=== PATIENT | male | born 1945 | race Caucasian/White ===

== ENCOUNTER 2024-03-25 09:38 | Inpatient (IN) | payer OTHER ==
[~2024-03-25] VITALS: Ht 177.8 cm; Wt 87.6 kg
[2024-03-25 10:40] LABS: Basophils # (auto) 0.1 10 ^3/uL (0-0.2); Basophils % (auto) 0.4 % (0.0-2.0); Eosinophils # (auto) 0.1 10 ^3/uL (0-0.8); Eosinophils % (auto) 0.5 % (0.0-7.0); Hematocrit 43.8 % (41.0-53.0); Hemoglobin 15.1 g/dL (13.5-17.5); Lymphocytes # (auto) 5.9 10 ^3/uL (0.4-5.4); Lymphocytes % (auto) 40.7 % (10.0-50.0); Mean Corpuscular Hemoglobin 33.3 pg (28.0-32.0); Mean Corpuscular Hgb Conc. 34.4 g/dL (32.0-36.0); Mean Corpuscular Volume 96.8 fL (80.0-100.0); Monocytes # (auto) 0.9 10 ^3/uL (0-1.3); Monocytes % (auto) 6.2 % (0.0-12.0); Neutrophils # (auto) 7.6 10 ^3/uL (1.6-8.6); Neutrophils % (auto) 52.2 % (37.0-80.0); Nucleated Red Blood Cells % 0.4 %; Platelet Count (auto) 158 10^3/uL (140-450); Red Blood Cells 4.53 10^6/uL (4.5-5.90); Red Cell Distribution Width 20.2 % (11.8-14.3); White Blood Cell 14.6 10^3/uL (4.4-10.8)
--- NOTE | 2024-03-25 10:49 | ED.PDOC ---
General HPI Comments 79-year-old male presents with a chief complaint of urinary retention and hematuria. Patient reports that he started taking chemotherapy pills for his Leukemia and noticed that he began to have hematuria with clots. However, now patient is reporting that he has been unable to void his bladder. Patient is also endorsing abdomen discomfort and has some distention. No other symptoms or modifying factors present at this time. Chief Complaint: Urinary Time Seen by MD: 10:29 Reviewed notes: Medications, Allergies Information Source: Patient, Spouse Mode of Arrival: Wheelchair Severity: Moderate Inability to void: Complete Timing: Days Duration: Since onset Has not urinated for: Hours Prehospital treatment: None Onset: Spontaneous Symptoms: Inability to void History of: None Location: Abdomen Past Medical History PAST MEDICAL HISTORY: Cancer Surgical History: Denies all surgeries Family History Family History: Reviewed,noncontributory to illness Social History Smoker: Non-Smoker Alcohol: Denies ETOH Use Drugs: Denies Drug Use Lives In: Home Constitutional: denies: chills, diaphoresis, fatigue, fever, malaise, sweats, weakness, others EENTM: denies: blurred vision, double vision, ear bleeding, ear discharge, ear drainage, ear pain, ear ringing, eye pain, eye redness, hearing loss, mouth pain, mouth swelling, nasal discharge, nose bleeding, nose congestion, nose pain, photophobia, tearing, throat pain, throat swelling, voice changes, others Respiratory: denies: cough, hemoptysis, orthopnea, SOB at rest, shortness of breath, SOB with excertion, stridor, wheezing, others Cardiovascular: denies: chest pain, dizzy spells, diaphoresis, Dyspnea on exertion, edema, irregular heart beat, left arm pain, lightheadedness, palpitations, PND, syncope, others Gastrointestinal: reports: abdominal pain; denies: abdomen distended, blood streaked bowels, constipated, diarrhea, dysphagia, difficulty swallowing, hematemesis, melena, nausea, poor appetite, poor fluid intake, rectal bleeding, rectal pain, vomiting, others Genitourinary: reports: hematuria, others (URINARY RETENTION); denies: burning, dysuria, flank pain, frequency, incontinence, penile discharge, penile sore, pain, testicle pain, testicle swelling, urgency Neurological: denies: dizziness, fainting, headache, left sided numbness, left sided weakness, numbness, paresthesia, pre-existing deficit, right sided numbness, right sided weakness, seizure, speech problems, tingling, tremors, weakness, others Musculoskeletal: denies: back pain, gout, joint pain, joint swelling, muscle pain, muscle stiffness, neck pain, others Integumetry: denies: bruises, change in color, change in hair/nails, dryness, laceration, lesions, lumps, rash, wounds, others Allergic/Immunocompromised: denies: Difficulty Healing, Frequent Infections, Hives, Itching, others Hematologic/Lymphatic: denies: anemia, blood clots, easy bleeding, easy bruising, swollen glands, others Endocrine: denies: excessive hunger, excessive sweating, excessive thirst, excessive urination, flushing, intolerance to cold, intolerance to heat, unexplained weight gain, unexplained weight loss, others Psychiatric: denies: anxiety, bipolar disorder, depression, hopeless, panic disorder, schizophrenia, sleepless, suicidal, others All Other Systems: Reviewed and Negative Physical Exam General Appearance: No Apparent Distress, Normal HEENT: Normal ENT Inspection, Pharynx Normal, TMs Normal Neck: Full Range of Motion, Non-Tender, Normal, Normal Inspection Respiratory: Chest Non-Tender, Lungs Clear, No Accessory Muscle Use, No Respiratory Distress, Normal Breath Sounds Cardiovascular: No Edema, No JVD, No Murmur, No Gallop, Normal Peripheral Pulses, Regular Rate/Rhythm Breast Exam: Deferred Gastrointestinal: No Organomegaly, Non Tender, No Pulsatile Mass, Normal Bowel Sounds, Soft Genitalia: Deferred Pelvic: Deferred Rectal: Deferred Extremities: No calf tenderness, Normal capillary refill, Normal inspection, Normal range of motion, Non-tender, No pedal edema Musculoskeletal : Apperance: Normal Neurologic: Alert, condenser tube tender II-XII nml as Tested, No Motor Deficits, Normal Affect, Normal Mood, No Sensory Deficits Cerebellar Function: Normal Reflexes: Normal Skin: Dry, Normal Color, Warm Lymphatic: No Adenopathy Was a procedure done? Was a procedure done?: No Differential Diagnosis Kidney stone (Female): N/A Kidney stone (Male): N/A Penile/Scrotal: N/A Urinary Problem (Male): Bladder Outlet, Bladder Obstruction, UTI X-Ray, Labs, Meds, VS Vital Signs Date Time Temp Pulse Resp B/P (MAP) Pulse Ox O2 Delivery O2 Flow Rate FiO2 03/25/24 15:00 92 137/65 (89) 95 03/25/24 13:45 85 17 Room Air* 0 21 03/25/24 12:49 92 12 146/84 (104) 96 03/25/24 09:58 97.5 107 16 135/80 (98) 95 Lab Test 03/25/24 13:21 03/25/24 10:19 Range/Units Urine Color Light-orange Yellow Urine Clarity Turbid H Clear Urine pH 5.5 5.0-9.0 Urine Specific [place] 1.039 H 1.001-1.035 Urine Protein 1+ H Negative Urine Ketones 2+ H Negative Urine Blood 3+ H Negative /uL Urine Nitrite Negative Negative Urine Bilirubin Negative Negative Urine Urobilinogen Normal Negative mg/dL Urine Leukocyte Esterase Negative Negative /uL Urine RBC 200 0 - 3 /hpf Urine WBC 7 0 - 3 /hpf Urine Squamous Epithelial Cells None seen <5 /hpf Urine Bacteria None seen None Seen /hpf Urine Glucose 4+ H Normal mg/dL White Blood Count 14.6 H 4.4-10.8 10^3/uL Red Blood Count 4.53 4.5-5.90 10^6/uL Hemoglobin 15.1 13.5-17.5 g/dL Hematocrit 43.8 41.0-53.0 % Mean Corpuscular Volume 96.8 80.0-100.0 fL Mean Corpuscular Hemoglobin 33.3 H 28.0-32.0 pg Mean Corpuscular Hemoglobin Concent 34.4 32.0-36.0 g/dL Red Cell Distribution Width 20.2 H 11.8-14.3 % Platelet Count 158 140-450 10^3/uL Mean Platelet Volume 9.4 6.9-10.8 fL Neutrophils (%) (Auto) 52.2 37.0-80.0 % Lymphocytes (%) (Auto) 40.7 10.0-50.0 % Monocytes (%) (Auto) 6.2 0.0-12.0 % Eosinophils (%) (Auto) 0.5 0.0-7.0 % Basophils (%) (Auto) 0.4 0.0-2.0 % Neutrophils # (Auto) 7.6 1.6-8.6 10 ^3/uL Lymphocytes # (Auto) 5.9 H 0.4-5.4 10 ^3/uL Monocytes # (Auto) 0.9 0-1.3 10 ^3/uL Eosinophils # (Auto) 0.1 0-0.8 10 ^3/uL Basophils # (Auto) 0.1 0-0.2 10 ^3/uL Nucleated Red Blood Cells 0.4 % Sodium Level 140 136-145 mmol/L Potassium Level 3.7 3.5-5.1 mmol/L Chloride Level 106 98-107 mmol/L Carbon Dioxide Level 25 20-31 mmol/L Anion Gap 9 5-15 Blood Urea Nitrogen 15 9-23 mg/dL Creatinine 0.67 L 0.700-1.30 mg/dL Glomerular Filtration Rate Calc 95 >90 mL/min BUN/Creatinine Ratio 22.4 H 10.0-20.0 Serum Glucose 132 H 74-106 mg/dL Calcium Level 10.4 8.7-10.4 mg/dL Time of 1ST Reevaluation: 11:03 Reevaluation 1ST: Unchanged Patient Education/Counseling: Diagnosis, Treatment, Prognosis Family Education/Counseling: Diagnosis, Treatment, Prognosis Departure 1 Departure Time of Disposition: 16:13 (Patient with acute urinary obstruction requiring CBI. We will admit patient for further workup and expert consultation) Impression: Primary Impression: Acute urinary retention Additional Impression: Abdominal pain Qualified Codes: R10.84 - Generalized abdominal pain Disposition: 09 ADMITTED INPATIENT Admit to: Med Surg Condition: Serious Critical Care Note Critical Care Time?: Yes Critical care comment: Acute abdominal pain Authorized and Performed by: Jes Butt MD Total critical care time: Approximately 44 minutes Due to a high probability of clinically significant, life threatening deterioration, the patient required my highest level of preparedness to intervene emergently and I personally spent this critical care time directly and personally managing the patient. This critical care time included obtaining a history; examining the patient; pulse oximetry; ordering and review of studies; arranging urgent treatment with development of a management plan; evaluation of patient's response to treatment; frequent reassessment; and, discussions with other providers. This critical care time was performed to assess and manage the high probability of imminent, life-threatening deterioration that could result in multi-organ failure. It was exclusive of separately billable procedures and treating other patients and teaching time. Please see my other sections and the rest of the note for further information on patient assessment and treatment. Stability Stability form required: No Heart Score Heart Score: Heart Score Response (Comments) Value History N/A 0 EKG N/A 0 Age N/A 0 Risk Factors N/A 0 Troponin N/A 0 Total 0 I personally scribed for JES BUTT MD ([email or web address]) on 03/25/24 at 10:49. Electronically submitted by Kevin Isidro ([email or web address]). JES BUTT MD Mar 25, 2024 10:49
[2024-03-25 10:50] LABS: Chloride 106 mmol/L (98-107); Potassium 3.7 mmol/L (3.5-5.1); Sodium 140 mmol/L (136-145)
[2024-03-25 10:51] LABS: Anion Gap 9 (5-15); Calcium 10.4 mg/dL (8.7-10.4); Carbon Dioxide 25 mmol/L (20-31)
[2024-03-25 10:56] LABS: BUN/Creatinine Ratio 22.4 (10.0-20.0); Blood Urea Nitrogen 15 mg/dL (9-23); Glucose 132 mg/dL (74-106)
[2024-03-25 13:45] VITALS: PULSE 85; RESP 17
[2024-03-25 13:45] LABS: Urine Bacteria None Seen /hpf (None Seen)
[2024-03-25 14:32] LABS: Urine Blood 3+ /uL (Negative); Urine Clarity Turbid (Clear); Urine Color Light-Orange (Yellow); Urine Protein, UAD 1+ (Negative); Urine Specific Gravity 1.039 (1.001-1.035); Urine Urobilinogen Normal (Negative); Urine WBC 7 /hpf (0 - 3); Urine pH 5.5 (5.0-9.0)
[2024-03-25] MEDS: ACETAMINOPHEN 325 MG TAB PO ONE (18:36)
[2024-03-25] MEDS ORDERED: NITROGLYCERIN 0.4 MG SL TAB SL PRN (18:45)
[2024-03-25] MEDS ORDERED: ACETAMINOPHEN 325 MG TAB PO PRN (18:45)
[2024-03-25] MEDS ORDERED: HYDROcodone-ACET 5/325MG TAB PO PRN (18:45)
[2024-03-25] MEDS ORDERED: DOCUSATE SOD 100 MG CAP PO PRN (18:45)
[2024-03-25] MEDS ORDERED: MORPHINE SULFATE INJ 2 MG/ml SYRG IV PRN (18:45)
[2024-03-25] MEDS ORDERED: ONDANSETRON HCL 4 MG/2 ML VIAL IV PRN (18:45)
--- NOTE | 2024-03-25 18:56 | DVHHP2 ---
History of Present Illness Reason for Visit: hematuria History of Present Illness Felix Alvarez is a 79-year-old male with past medical history of hypertension, diabetes, and recent diagnosis of leukemia, who comes in with complaints of dysuria, hematuria, and urinary retention. Patient states he was diagnosed with leukemia about 4-5 months ago. He started a chemotherapy pill, and then began having hematuria. He stopped the pill, thought his urine was clearing up, when he became unable to urinate, started having pelvic pain and distention. He had previously spoken with his oncologist to let her know his symptoms, and that he had stopped his medication. He does have an appointment later this month with the oncologist. Cardiovascular: HTN Heme/Onc: Cancer (Leukemia) Endocrine: Diabetes Past Surgical History: None Family History: None Smoke: Quit (5 years ago) ALCOHOL: none Drugs: None Lives: Alone Domestic Violence: Neg Review of Systems Constitutional: No: Fever, Chills, Sweats, Weakness, Malaise, Other Eyes: No: Pain, Vision change, Conjunctivae inflammation, Eyelid inflammation, Other, Redness ENT: No: Ear pain, Ear discharge, Nose pain, Nose discharge, Nose congestion, Mouth pain, Mouth swelling, Throat pain, Throat swelling, Other Respiratory: No: Cough, Dry, Shortness of breath, SOB with excertion, Wheezing, Hemoptysis, Pleuritic Pain, Sputum, Wheezing, Other Cardiovascular: No: Chest Pain, Palpitations, Orthopnea, Paroxysmal Noc. Dyspnea, Edema, Lt Headedness, Other Gastrointestinal: No: Nausea, Vomiting, Abdominal Pain, Diarrhea, Constipation, Melena, Hematochezia, Other Genitourinary: Dysuria, Frequency; No Incontinence; Hematuria; No Retention, No Other Musculoskeletal: No: other, neck pain, shoulder pain, arm pain, back pain, hand pain, leg pain, foot pain Skin: No: Rash, Lesions, Jaundice, Bruising, Other Neurological: No: Weakness, Numbness, Incoordination, Change in speech, Confusion, Seizures, Other Allergies: Coded Allergies: NO KNOWN ALLERGIES (Unverified , 03/25/24) Medications Current Medications Medications Dose Ordered Sig/Jaqueline Route Start Time Stop Time Status Last Admin Dose Admin Sodium Chloride 10 ml Q8HR IV 03/25/24 22:00 Acetaminophen/ Hydrocodone Bitart 1 tab Q4HP PRN PO 03/25/24 18:45 Ondansetron HCl 4 mg Q4HP PRN IV 03/25/24 18:45 Docusate Sodium 100 mg BIDPRN PRN PO 03/25/24 18:45 Acetaminophen 650 mg Q6HP PRN PO 03/25/24 18:45 Nitroglycerin 0.4 mg Q5MINP PRN SL 03/25/24 18:45 Morphine Sulfate 2 mg Q30M PRN IV 03/25/24 18:45 Exam Vital Signs Vital Signs Date Time Temp Pulse Resp B/P (MAP) Pulse Ox O2 Delivery O2 Flow Rate FiO2 03/25/24 18:00 93 17 118/78 (91) 94 03/25/24 13:45 Room Air* 0 21 03/25/24 09:58 97.5 General Appearance: Alert, Oriented X3, Cooperative, mild distress HEENT: Atraumatic, PERRLA Respiratory: Clear to auscultation, Normal air movement Cardiovascular: Regular rate, Normal S1, Normal S2 Abdominal: Normal bowel sounds, Soft, No tenderness Extremities: No clubbing, No cyanosis, No edema, Normal pulses Skin: No rashes, No breakdown, No significant lesion Neuro: Normal gait, Normal speech, Strength at 5/5 X4 ext Psych/Mental Status: Mental status NL, Mood NL Labs/Xrays Labs Test 03/25/24 13:21 03/25/24 10:19 Range/Units Urine Color Light-orange Yellow Urine Clarity Turbid H Clear Urine pH 5.5 5.0-9.0 Urine Specific [place] 1.039 H 1.001-1.035 Urine Protein 1+ H Negative Urine Ketones 2+ H Negative Urine Blood 3+ H Negative /uL Urine Nitrite Negative Negative Urine Bilirubin Negative Negative Urine Urobilinogen Normal Negative mg/dL Urine Leukocyte Esterase Negative Negative /uL Urine RBC 200 0 - 3 /hpf Urine WBC 7 0 - 3 /hpf Urine Squamous Epithelial Cells None seen <5 /hpf Urine Bacteria None seen None Seen /hpf Urine Glucose 4+ H Normal mg/dL White Blood Count 14.6 H 4.4-10.8 10^3/uL Red Blood Count 4.53 4.5-5.90 10^6/uL Hemoglobin 15.1 13.5-17.5 g/dL Hematocrit 43.8 41.0-53.0 % Mean Corpuscular Volume 96.8 80.0-100.0 fL Mean Corpuscular Hemoglobin 33.3 H 28.0-32.0 pg Mean Corpuscular Hemoglobin Concent 34.4 32.0-36.0 g/dL Red Cell Distribution Width 20.2 H 11.8-14.3 % Platelet Count 158 140-450 10^3/uL Mean Platelet Volume 9.4 6.9-10.8 fL Neutrophils (%) (Auto) 52.2 37.0-80.0 % Lymphocytes (%) (Auto) 40.7 10.0-50.0 % Monocytes (%) (Auto) 6.2 0.0-12.0 % Eosinophils (%) (Auto) 0.5 0.0-7.0 % Basophils (%) (Auto) 0.4 0.0-2.0 % Neutrophils # (Auto) 7.6 1.6-8.6 10 ^3/uL Lymphocytes # (Auto) 5.9 H 0.4-5.4 10 ^3/uL Monocytes # (Auto) 0.9 0-1.3 10 ^3/uL Eosinophils # (Auto) 0.1 0-0.8 10 ^3/uL Basophils # (Auto) 0.1 0-0.2 10 ^3/uL Nucleated Red Blood Cells 0.4 % Sodium Level 140 136-145 mmol/L Potassium Level 3.7 3.5-5.1 mmol/L Chloride Level 106 98-107 mmol/L Carbon Dioxide Level 25 20-31 mmol/L Anion Gap 9 5-15 Blood Urea Nitrogen 15 9-23 mg/dL Creatinine 0.67 L 0.700-1.30 mg/dL Glomerular Filtration Rate Calc 95 >90 mL/min BUN/Creatinine Ratio 22.4 H 10.0-20.0 Serum Glucose 132 H 74-106 mg/dL Calcium Level 10.4 8.7-10.4 mg/dL Assessment/Plan Assessment/Plan Assessment: Acute urinary retention, Hematuria, Dysuria, Hypertension, Leukemia, Diabetes, Arthritis, Plan: Admit to Med-Surg, Urology consult, CBI, IV antibiotics, Home medications reconciled, Accu checks Q AC&HS with sliding scale, Plan discussed with: Patient My Orders Orders - LISETTE GUTHRIE Procedure Category Date Status Time Admit ADMIT 03/25/24 Transmitted 18:32 Code Status CODE 03/25/24 Transmitted 18:32 2 Gm Sodium Diet DIET 03/26/24 Transmitted Breakfast Sodium Chloride Lock PHA 03/25/24 In Process (Saline Lock Ns) 22:00 Hydrocodone-Acet PHA 03/25/24 In Process 5/325mg Tab ([place] 18:45 Ondansetron Hcl PHA 03/25/24 In Process (Zofran) 18:45 Docusate Sodium PHA 03/25/24 In Process Capsule (Colace 18:45 Complete Blood Count LAB 03/26/24 Verified 04:00 Comprehensive LAB 03/26/24 Verified Metabolic Panel 04:00 Condition: Serious LALO 03/25/24 In Process 18:32 Acetaminophen Tablet PHA 03/25/24 In Process (Tylenol Tablet) 18:45 Nitroglycerin PHA 03/25/24 In Process Sublingual (Ntrostat 18:45 Morphine Sulfate PHA 03/25/24 In Process Injection 18:45 Stat Ekg For Chest LALO 03/25/24 In Process Pain 18:32 Notify Md Of Changes LALO 03/25/24 In Process From Base 18:32 Software Team Leader For LALO 03/25/24 In Process 24 Hours 18:32 Emergency Dysrhythmia LALO 03/25/24 In Process Protocol 18:32 Rhythm Strips Once LALO 03/25/24 In Process Every Shift 18:32 Oxygen By Nasal RT 03/25/24 Transmitted Cannula 18:32 * Urology Consult CONS 03/25/24 Transmitted 18:32 Date of Service: Mar 25, 2024 Billing Provider: LISETTE GUTHRIE Common Visit Codes: [id number] INP/OBS CARE (MOD) LISETTE GUTHRIE Mar 25, 2024 18:56
[2024-03-25] MEDS ORDERED: DEXTROSE (50%) 50ML SYRG IV PRN (19:00)
[2024-03-25] MEDS: cefTRIAXone 1GM/50ML D5W 50 ML IV ONE (19:07)
[2024-03-25 19:30] VITALS: PULSE 91; RESP 20; O2SAT 93
[2024-03-25] MEDS ORDERED: TAMS0.4C39 PO (19:50)
[2024-03-25] MEDS ORDERED: ALBUTEROL SULF HFA 90MCG INH 200DOSE IN PRN (21:15)
[2024-03-25] MEDS ORDERED: METO-158 PO (21:19)
[2024-03-25] MEDS ORDERED: IBUP-1455 PO (21:19)
[2024-03-25] MEDS ORDERED: LORA-622 PO (21:19)
[2024-03-25] MEDS ORDERED: METF-370 PO (21:19)
[2024-03-25] MEDS ORDERED: HYDR25TA5 PO (21:19)
[2024-03-25] MEDS ORDERED: GABA-1250 PO (21:19)
[2024-03-25] MEDS ORDERED: ATOR20TA50 PO (21:19)
[2024-03-25] MEDS ORDERED: EMPA1TAB3 PO (21:22)
[2024-03-25] MEDS ORDERED: FLUT1AER6 IN (21:22)
[2024-03-25] MEDS ORDERED: BENA40TA71 PO (21:22)
[2024-03-25] MEDS ORDERED: ALBU108A5 IN (21:22)
[2024-03-25 21:33] VITALS: BP 113/63; PULSE 91; RESP 20; O2SAT 93
[2024-03-25] MEDS ORDERED: FLUTICASONE SALMETEROL IN SCH (22:00)
[2024-03-25] MEDS: InsuLIN REG 1unit/0.01ml Soln (100units/ml) SC SCH (22:00)
[2024-03-25 22:19] VITALS: BP 124/71; PULSE 68; PULSE 87; RESP 18; RESP 19; TEMP 99.1; O2SAT 99
[2024-03-25] MEDS: ATORVASTATIN 20 MG TAB PO SCH (22:49)
[2024-03-25] MEDS: GABAPENTIN 300 MG CAP PO SCH (22:49)
[2024-03-25] MEDS: SODIUM CHLOR 0.9% PF (SALINE LOCK) 10ML VIAL/SYR IV SCH (22:50)
[2024-03-25] MEDS: ACCU-CHEK COMFORT CURVE STRIP VI SCH (22:50)
[2024-03-25] MEDS: METOPROLOL TARTRATE 50 MG TAB PO SCH (22:50)
[2024-03-26] VITALS (14 sets, daily range): BP systolic 104–119; BP diastolic 54–67; PULSE 69–100; RESP 16–20; TEMP 97.8–98.7; O2SAT 90–100
[2024-03-26 05:52] LABS: Basophils # (auto) 0 10 ^3/uL (0-0.2); Basophils % (auto) 0.4 % (0.0-2.0); Eosinophils # (auto) 0.1 10 ^3/uL (0-0.8); Eosinophils % (auto) 0.8 % (0.0-7.0); Hematocrit 38.9 % (41.0-53.0); Hemoglobin 13.5 g/dL (13.5-17.5); Lymphocytes # (auto) 4.9 10 ^3/uL (0.4-5.4); Lymphocytes % (auto) 37.7 % (10.0-50.0); Mean Corpuscular Hemoglobin 33.5 pg (28.0-32.0); Mean Corpuscular Hgb Conc. 34.7 g/dL (32.0-36.0); Mean Corpuscular Volume 96.5 fL (80.0-100.0); Monocytes # (auto) 1.5 10 ^3/uL (0-1.3); Monocytes % (auto) 11.2 % (0.0-12.0); Neutrophils # (auto) 6.5 10 ^3/uL (1.6-8.6); Neutrophils % (auto) 49.9 % (37.0-80.0); Nucleated Red Blood Cells % 0.1 %; Platelet Count (auto) 130 10^3/uL (140-450); Red Blood Cells 4.03 10^6/uL (4.5-5.90); Red Cell Distribution Width 19.8 % (11.8-14.3); White Blood Cell 13.1 10^3/uL (4.4-10.8)
[2024-03-26 05:59] LABS: Alanine Aminotransferase 17 U/L (7-40); Alkaline Phosphatase 134 U/L (46-116); Anion Gap 9 (5-15); Blood Urea Nitrogen 13 mg/dL (9-23); Calcium 9.6 mg/dL (8.7-10.4); Carbon Dioxide 25 mmol/L (20-31); Chloride 108 mmol/L (98-107); Glucose 114 mg/dL (74-106); Potassium 3.5 mmol/L (3.5-5.1); Sodium 142 mmol/L (136-145)
[2024-03-26 06:00] LABS: Albumin 3.7 g/dL (3.2-4.8); Aspartate Aminotransferase 18 U/L (13-40); Bilirubin, Total 2.9 mg/dL (0.2-1.0); Total Protein 5.9 g/dL (5.7-8.2)
[2024-03-26] MEDS: InsuLIN REG 1unit/0.01ml Soln (100units/ml) SC SCH (06:08)
[2024-03-26] MEDS: BUDESONIDE (INHALATION) 0.5 MG/2 ML NEB NEB SCH (06:50)
[2024-03-26] MEDS: cefTRIAXone 1GM/50ML D5W 50 ML IV SCH (09:52)
[2024-03-26] MEDS: hydroCHLOROthiazide 25 MG TAB PO SCH (09:55)
[2024-03-26] MEDS: EMPAGLIFLOZIN 10 MG TAB PO SCH (09:55)
[2024-03-26] MEDS: TAMSULOSIN HYDROCHLORIDE 0.4 MG CAP PO SCH (09:57)
[2024-03-26] MEDS: BENAZEPRIL HCL 10 MG TAB PO SCH (10:00)
[2024-03-26] MEDS: ALBUTEROL SULF 2.5 MG/0.5ML(0.5%) NEB SOLN ONE (12:02)
--- NOTE | 2024-03-26 12:40 | DVH ---
RENAL ULTRASOUND CLINICAL HISTORY: Hematuria TECHNIQUE: Multiple ultrasound images of the kidneys and bladder were obtained. COMPARISON: None FINDINGS: The right kidney measures 11.7 cm in length. The left kidney measures 10.6 cm. The kidneys demonstrat e appropriate echotexture without evidence of a discrete renal lesion, nephrolithiasis or hydronephro sis. Incidentally noted is a 3.0 cm gallstone within the gallbladder. There is a Ceils catheter within the bladder which is collapsed. IMPRESSION: 1. Unremarkable sonographic appearance of the kidneys. 2. Cholelithiasis. HS:Y
[2024-03-26] MEDS: ALBUTEROL MEDNEB 2.5 mg/3ml NEB NEB SCH ×2 (13:16)
--- NOTE | 2024-03-26 14:30 | DVHPN2 ---
Subjective 79-year-old male with a history of leukemia who has been on chemo says he started having difficulty urination and hematuria since yesterday He has a history of hypertension diabetes and leukemia He is on CBI now Changes from previous H/P or p: Changes Eyes: No Pain, No Vision change, No Conjunctivae inflammation, No Eyelid inflammation, No Other, No Redness ENT: No Ear pain, No Ear discharge, No Nose pain, No Nose discharge, No Nose congestion, No Mouth pain, No Mouth swelling, No Throat pain, No Throat swelling, No Other Cardiovascular: No Chest Pain, No Palpitations, No Orthopnea, No Paroxysmal Noc. Dyspnea, No Edema, No Lt Headedness, No Other Respiratory: No Cough, No Dry, No Shortness of breath, No SOB with excertion, No Wheezing, No Hemoptysis, No Pleuritic Pain, No Sputum, No Other Gastrointestinal: No Nausea, No Vomiting, No Abdominal Pain, No Diarrhea, No Constipation, No Melena, No Hematochezia, No Other Genitourinary: Dysuria, Frequency; No Incontinence; Hematuria; No Retention, No Other Musculoskeletal: No other, No neck pain, No shoulder pain, No arm pain, No back pain, No hand pain, No leg pain, No foot pain Skin: No Rash, No Lesions, No Jaundice, No Bruising, No Other Objective Vitals Vital Signs Date Time Temp Pulse Resp B/P (MAP) Pulse Ox O2 Delivery O2 Flow Rate FiO2 03/26/24 13:18 100 18 99 03/26/24 13:12 Nasal Cannula 2.0 03/26/24 13:12 28 03/26/24 12:47 97.8 114/60 (78) 97.8 Intake/Output Intake and Output 03/26/24 07:00 Intake Total 175 ml Output Total 41597 ml Balance -54785 ml Intake Oral 125 ml IV Total 50 ml Output Urine Total 47001 ml General Appearance: Alert, Oriented X3, Cooperative, No acute distress Lungs: Clear to auscultation, Normal air movement Cardiovascular: Regular rate, Normal S1 Abdomen: Normal bowel sounds, Soft, No tenderness Extremities: No edema Medications Current Medications Medications Dose Ordered Sig/Jaqueline Route Start Time Stop Time Status Last Admin Dose Admin Sodium Chloride 10 ml Q8HR IV 03/25/24 22:00 03/26/24 14:21 10 ML Acetaminophen/ Hydrocodone Bitart 1 tab Q4HP PRN PO 03/25/24 18:45 Ondansetron HCl 4 mg Q4HP PRN IV 03/25/24 18:45 Docusate Sodium 100 mg BIDPRN PRN PO 03/25/24 18:45 Acetaminophen 650 mg Q6HP PRN PO 03/25/24 18:45 Nitroglycerin 0.4 mg Q5MINP PRN SL 03/25/24 18:45 Morphine Sulfate 2 mg Q30M PRN IV 03/25/24 18:45 Diagnostic Test (Pha) 1 strip ACHS 03/25/24 22:00 03/26/24 11:50 1 STRIP Insulin Human Regular HS SC 03/25/24 22:00 Insulin Human Regular AC SC 03/26/24 07:00 03/26/24 11:54 3 UNITS Dextrose 50 ml UD PRN IV 03/25/24 19:00 Ceftriaxone Sodium 50 ml @ 100 mls/hr DAILY@09 IV 03/26/24 09:00 03/26/24 09:52 100 MLS/HR Tamsulosin HCl 0.4 mg DAILY PO 03/26/24 10:00 03/26/24 09:57 0.4 MG Albuterol 108 mcg Q6HP PRN IN 03/25/24 21:15 Hold Atorvastatin Calcium 20 mg HS PO 03/25/24 22:00 03/25/24 22:49 20 MG Gabapentin 300 mg TID PO 03/25/24 22:00 03/26/24 14:21 300 MG Hydrochlorothiazide 25 mg DAILY PO 03/26/24 10:00 03/26/24 09:55 25 MG Metoprolol Tartrate 50 mg BID PO 03/25/24 22:00 03/25/24 22:50 50 MG Benazepril HCl 40 mg DAILY PO 03/26/24 10:00 Empaglifozin 25 mg DAILY PO 03/26/24 10:00 03/26/24 09:55 25 MG Budesonide 0.5 mg BID NEB 03/26/24 10:00 03/26/24 06:50 0.5 MG Albuterol 2.5 mg Q6HR NEB 03/26/24 18:00 Laboratory Results Laboratory Tests 03/26/24 05:05 Chemistry Test 03/26/24 05:05 Albumin 3.7 g/dL (3.2-4.8) Calcium Level 9.6 mg/dL (8.7-10.4) Total Protein 5.9 g/dL (5.7-8.2) LFT Test 03/26/24 05:05 Alanine Aminotransferase (ALT) 17 U/L (7-40) Alkaline Phosphatase 134 U/L (46-116) H Aspartate Amino Transferase (AST) 18 U/L (13-40) Total Bilirubin 2.9 mg/dL (0.2-1.0) H Urinalysis Test 03/25/24 13:21 Urine Color Light-orange (Yellow) Urine Clarity Turbid (Clear) H Urine pH 5.5 (5.0-9.0) Urine Specific [place] 1.039 (1.001-1.035) Urine Protein 1+ (Negative) H Urine Ketones 2+ (Negative) H Urine Blood 3+ /uL (Negative) H Urine Nitrite Negative (Negative) Urine Bilirubin Negative (Negative) Urine Urobilinogen Normal mg/dL (Negative) Urine Leukocyte Esterase Negative /uL (Negative) Urine RBC 200 /hpf (0 - 3) Urine WBC 7 /hpf (0 - 3) Urine Squamous Epithelial Cells None seen /hpf (<5) Urine Bacteria None seen /hpf (None Seen) Urine Glucose 4+ mg/dL (Normal) H Assessment/Plan Assessment/Plan Hematuria Acute urinary retention Hypertension Diabetes Leukemia Plan Celis catheter was inserted Continuous bladder irrigation is in progress Urology consult IV Rocephin Monitor closely Full code Plan discussed with: Patient Date of Service: Mar 26, 2024 Billing Provider: TERRI JORDAN MD Common Visit Codes: NOT BILLABLE TERRI JORDAN MD Mar 26, 2024 14:30
--- NOTE | 2024-03-26 14:34 | DVHINCON2 ---
Date of service: Mar 26, 2024 Referring Physician hospitalist Reason for Consultation hematuria History of Present Illness History Source: Patient, Old Records Exam Limitations: No limitations Home Meds Active Scripts Atorvastatin Calcium (ATORVASTATIN CALCIUM) 20 Mg Tab, 1 TAB PO HS, #30 TAB 5 Refills Prov:LISETTE GUTHRIE ACCOUNT DEVELOPMENT ASSOCIATE 03/25/24 Reported Medications Fluticasone-Salmeterol (Wixela Inhub 250-50 Mcg/Dose) 1 Aer Aer, 1 AER IN BID, AER 03/25/24 Albuterol Sulfate (Albuterol Sulfate Hfa) 108 Mcg/Act Aer, 108 MCG IN Q6HP PRN, AER 03/25/24 Benazepril Hcl (Benazepril Hcl) 40 Mg Tab, 40 MG PO DAILY, TAB 03/25/24 Empagliflozin (Jardiance) 25 Mg Tab, 25 MG PO DAILY, TAB 03/25/24 Gabapentin (Gabapentin) 300 Mg Cap, 1 CAP PO TID, #90 CAP 5 Refills 03/25/24 Metoprolol Tartrate (Metoprolol Tartrate) 50 Mg Tab, 50 MG PO BID, TAB 03/25/24 Hctz (Hydrochlorothiazide) 25 Mg Tab, 25 MG PO DAILY, TAB 03/25/24 Loratadine (Claritin) 10 Mg Tab, 1 TAB PO PRN PRN, #30 TAB 5 Refills 03/25/24 Metformin Hydrochloride (Metformin Hcl) 500 Mg Tab, 2 TAB PO BID, #60 TAB 3 Ref ills 03/25/24 Ibuprofen Micronized (Ibuprofen) 800 Mg Tab, 800 MG PO TID, TAB 03/25/24 Tamsulosin Hcl (Tamsulosin Hcl) 0.4 Mg Cap, 1 CAP PO DAILY 03/25/24 Past Medical History Patient Family History: FH: pancreatic cancer G8 MOTHER H&P Exam Vital Signs Vital Signs Date Time Temp Pulse Resp B/P (MAP) Pulse Ox O2 Delivery O2 Flow Rate FiO2 03/26/24 13:18 100 18 99 03/26/24 13:12 Nasal Cannula 2.0 03/26/24 13:12 28 03/26/24 12:47 97.8 114/60 (78) 97.8 Labs/Xrays [address] [address] Ph: [phone] DIAGNOSTIC IMAGING Diagnostic Imaging Report : [id number] Signed PATIENT: MAX CAMPUZANOACCT: [id number] UNIT: [id number] : 1945 LOC: [facility] AGE / SEX: 79 / M ADM STATUS: ADM IN SERVICE 1114 ORDERING PHYSICIAN: JEAN BORJA NP PROCEDURE(s): KIDUS - KIDNEY REASON: Hematuria ORDER NUMBER(s): [id number], ACCESSION NUMBER(s): [id number] RENAL ULTRASOUND CLINICAL HISTORY: Hematuria TECHNIQUE: Multiple ultrasound images of the kidneys and bladder were obtained. COMPARISON: None FINDINGS: The right kidney measures 11.7 cm in length. The left kidney measures 10.6 cm. The kidneys demonstrate appropriate echotexture without evidence of a discrete renal lesion, nephrolithiasis or hydronephrosis. Incidentally noted is a 3.0 cm gallstone within the gallbladder. There is a Mejia catheter within the bladder which is collapsed. IMPRESSION: 1. Unremarkable sonographic appearance of the kidneys. 2. Cholelithiasis. HS:Y ATED BY: JAVED NIX MD DICTATED DATE/TIME: 03/26/24 1237 SIGNED BY: JAVED NIX MD SIGNED DATE/TIME: 03/26/24 1237 CC: Labs Test 03/26/24 11:53 03/26/24 05:05 03/25/24 13:21 Range/Units POC Glucose 168 H 70-106 mg/dl White Blood Count 13.1 H 4.4-10.8 10^3/uL Red Blood Count 4.03 L 4.5-5.90 10^6/uL Hemoglobin 13.5 13.5-17.5 g/dL Hematocrit 38.9 #L 41.0-53.0 % Mean Corpuscular Volume 96.5 80.0-100.0 fL Mean Corpuscular Hemoglobin 33.5 H 28.0-32.0 pg Mean Corpuscular Hemoglobin Concent 34.7 32.0-36.0 g/dL Red Cell Distribution Width 19.8 H 11.8-14.3 % Platelet Count 130 L 140-450 10^3/uL Mean Platelet Volume 10.0 6.9-10.8 fL Neutrophils (%) (Auto) 49.9 37.0-80.0 % Lymphocytes (%) (Auto) 37.7 10.0-50.0 % Monocytes (%) (Auto) 11.2 0.0-12.0 % Eosinophils (%) (Auto) 0.8 0.0-7.0 % Basophils (%) (Auto) 0.4 0.0-2.0 % Neutrophils # (Auto) 6.5 1.6-8.6 10 ^3/uL Lymphocytes # (Auto) 4.9 0.4-5.4 10 ^3/uL Monocytes # (Auto) 1.5 H 0-1.3 10 ^3/uL Eosinophils # (Auto) 0.1 0-0.8 10 ^3/uL Basophils # (Auto) 0 0-0.2 10 ^3/uL Nucleated Red Blood Cells 0.1 % Sodium Level 142 136-145 mmol/L Potassium Level 3.5 3.5-5.1 mmol/L Chloride Level 108 H 98-107 mmol/L Carbon Dioxide Level 25 20-31 mmol/L Anion Gap 9 5-15 Blood Urea Nitrogen 13 9-23 mg/dL Creatinine 0.62 L 0.700-1.30 mg/dL Glomerular Filtration Rate Calc 97 >90 mL/min BUN/Creatinine Ratio 21.0 H 10.0-20.0 Serum Glucose 114 H 74-106 mg/dL Calcium Level 9.6 8.7-10.4 mg/dL Total Bilirubin 2.9 H 0.2-1.0 mg/dL Aspartate Amino Transferase (AST) 18 13-40 U/L Alanine Aminotransferase (ALT) 17 7-40 U/L Alkaline Phosphatase 134 H 46-116 U/L Total Protein 5.9 5.7-8.2 g/dL Albumin 3.7 3.2-4.8 g/dL Urine Color Light-orange Yellow Urine Clarity Turbid H Clear Urine pH 5.5 5.0-9.0 Urine Specific [place] 1.039 H 1.001-1.035 Urine Protein 1+ H Negative Urine Ketones 2+ H Negative Urine Blood 3+ H Negative /uL Urine Nitrite Negative Negative Urine Bilirubin Negative Negative Urine Urobilinogen Normal Negative mg/dL Urine Leukocyte Esterase Negative Negative /uL Urine RBC 200 0 - 3 /hpf Urine WBC 7 0 - 3 /hpf Urine Squamous Epithelial Cells None seen <5 /hpf Urine Bacteria None seen None Seen /hpf Urine Glucose 4+ H Normal mg/dL Assessment/Plan Problem List: (1) Abdominal pain (2) Acute urinary retention Plan d/c home with mejia catheter Plan discussed with: Patient, Other JEAN BORJA NP Mar 26, 2024 14:34
[2024-03-26] MEDS: ALBUTEROL SULF 2.5 MG/0.5ML(0.5%) NEB SOLN NEB SCH (18:11)
[2024-03-27] VITALS (11 sets, daily range): BP systolic 101–127; BP diastolic 66–71; PULSE 69–115; RESP 16–20; TEMP 36.8; O2SAT 91–99
[2024-03-27 06:03] LABS: Chloride 107 mmol/L (98-107); Potassium 3.4 mmol/L (3.5-5.1); Sodium 137 mmol/L (136-145)
[2024-03-27 06:04] LABS: Anion Gap 2 (5-15); Carbon Dioxide 28 mmol/L (20-31)
[2024-03-27 06:05] LABS: Basophils # (auto) 0.1 10 ^3/uL (0-0.2); Basophils % (auto) 0.5 % (0.0-2.0); Calcium 9.7 mg/dL (8.7-10.4); Eosinophils # (auto) 0.1 10 ^3/uL (0-0.8); Eosinophils % (auto) 0.8 % (0.0-7.0); Hematocrit 38.6 % (41.0-53.0); Hemoglobin 13.5 g/dL (13.5-17.5); Lymphocytes # (auto) 4.8 10 ^3/uL (0.4-5.4); Lymphocytes % (auto) 39.9 % (10.0-50.0); Mean Corpuscular Hemoglobin 33.8 pg (28.0-32.0); Mean Corpuscular Volume 96.6 fL (80.0-100.0); Monocytes # (auto) 1.5 10 ^3/uL (0-1.3); Monocytes % (auto) 12.9 % (0.0-12.0); Neutrophils # (auto) 5.5 10 ^3/uL (1.6-8.6); Neutrophils % (auto) 45.9 % (37.0-80.0); Nucleated Red Blood Cells % 0.1 %; Platelet Count (auto) 124 10^3/uL (140-450); Red Blood Cells 3.99 10^6/uL (4.5-5.90); Red Cell Distribution Width 19.4 % (11.8-14.3); White Blood Cell 11.9 10^3/uL (4.4-10.8)
[2024-03-27 06:10] LABS: BUN/Creatinine Ratio 19.3 (10.0-20.0); Blood Urea Nitrogen 11 mg/dL (9-23); Glucose 110 mg/dL (74-106)
--- NOTE | 2024-03-27 11:10 | DVHDS2 ---
Discharge Summary Date of Admission Mar 25, 2024 at 18:32 Date of Discharge: Mar 27, 2024 Labs/Diagnostic Data: Laboratory Results Test 03/27/24 05:59 03/27/24 05:18 03/26/24 05:05 03/25/24 13:21 POC Glucose 121 mg/dl (70-106) White Blood Count 11.9 10^3/uL (4.4-10.8) Red Blood Count 3.99 10^6/uL (4.5-5.90) Hemoglobin 13.5 g/dL (13.5-17.5) Hematocrit 38.6 % (41.0-53.0) Mean Corpuscular Volume 96.6 fL (80.0-100.0) Mean Corpuscular Hemoglobin 33.8 pg (28.0-32.0) Mean Corpuscular Hemoglobin Concent 35.0 g/dL (32.0-36.0) Red Cell Distribution Width 19.4 % (11.8-14.3) Platelet Count 124 10^3/uL (140-450) Mean Platelet Volume 9.5 fL (6.9-10.8) Neutrophils (%) (Auto) 45.9 % (37.0-80.0) Lymphocytes (%) (Auto) 39.9 % (10.0-50.0) Monocytes (%) (Auto) 12.9 % (0.0-12.0) Eosinophils (%) (Auto) 0.8 % (0.0-7.0) Basophils (%) (Auto) 0.5 % (0.0-2.0) Neutrophils # (Auto) 5.5 10 ^3/uL (1.6-8.6) Lymphocytes # (Auto) 4.8 10 ^3/uL (0.4-5.4) Monocytes # (Auto) 1.5 10 ^3/uL (0-1.3) Eosinophils # (Auto) 0.1 10 ^3/uL (0-0.8) Basophils # (Auto) 0.1 10 ^3/uL (0-0.2) Nucleated Red Blood Cells 0.1 % Sodium Level 137 mmol/L (136-145) Potassium Level 3.4 mmol/L (3.5-5.1) Chloride Level 107 mmol/L (98-107) Carbon Dioxide Level 28 mmol/L (20-31) Anion Gap 2 (5-15) Blood Urea Nitrogen 11 mg/dL (9-23) Creatinine 0.57 mg/dL (0.700-1.30) Glomerular Filtration Rate Calc 100 mL/min (>90) BUN/Creatinine Ratio 19.3 (10.0-20.0) Serum Glucose 110 mg/dL (74-106) Calcium Level 9.7 mg/dL (8.7-10.4) Total Bilirubin 2.9 mg/dL (0.2-1.0) Aspartate Amino Transferase (AST) 18 U/L (13-40) Alanine Aminotransferase (ALT) 17 U/L (7-40) Alkaline Phosphatase 134 U/L (46-116) Total Protein 5.9 g/dL (5.7-8.2) Albumin 3.7 g/dL (3.2-4.8) Urine Color Light-orange (Yellow) Urine Clarity Turbid (Clear) Urine pH 5.5 (5.0-9.0) Urine Specific [place] 1.039 (1.001-1.035) Urine Protein 1+ (Negative) Urine Ketones 2+ (Negative) Urine Blood 3+ /uL (Negative) Urine Nitrite Negative (Negative) Urine Bilirubin Negative (Negative) Urine Urobilinogen Normal mg/dL (Negative) Urine Leukocyte Esterase Negative /uL (Negative) Urine RBC 200 /hpf (0 - 3) Urine WBC 7 /hpf (0 - 3) Urine Squamous Epithelial Cells None seen /hpf (<5) Urine Bacteria None seen /hpf (None Seen) Urine Glucose 4+ mg/dL (Normal) Other Laboratory Tests 03/27/24 05:18 Brief Hx & Hospital Course: Final diagnoses: Hematuria Acute urinary retention Hypertension Diabetes Leukemia He was admitted for blood clots that blocked his urination, had a Celis inserted, CBI done overnight Now urine is clear in Celis Will DC Celis and DC home after he voids He understands that he might need the catheter inserted again if he cannot void F/U with urology and PCP MARY JO Condition at Discharge: Stable Final Diagnosis/Problems List Hematuria Acute urinary retention Hypertension Diabetes Leukemia Discharge Disposition: Home SNF Discharge Will this Physician continue t: No Discharge Instruct/Medications Diet: Cardiac 2g Na,low cholest Activity: No Restrictions, As Tolerated Follow Up/Referral: PCP MARY JO Medications: Same home meds Discharge Statement: "Patient was advised to return to the ER or call 911 if any headaches, dizziness, shortness of breath, chest pain, abdominal pain, bleeding, fevers, or worsening of medical condition. Patient was counseled about treatment plan, medications, possible side effects, patientverbalized understanding. All questions were answered to the best of my ability. This discharge took greater then 30 minutes in planning, reviewing documentation, counseling the patient, and discussing with other team members." ASSESSMENT ASSESSMENT Assessment Hematuria Acute urinary retention Hypertension Diabetes Leukemia Date of Service: Mar 27, 2024 Billing Provider: TERRI JORDAN MD Common Visit Codes: NOT BILLABLE TERRI JORDAN MD Mar 27, 2024 11:10
[2024-03-27] MEDS: POTASSIUM CHL 20 Meq TABLET PO ONE (15:02)
== END 2024-03-27 21:00 | disposition home health service (06) | DRG 696 ==
LOC: ER 09:38 → OVERFLOW 18:32 → WEST WING 22:00 → EAST 03-26 10:54
PROVIDERS: ADMIT Nurse Practitioner Family; ATTEND Internal Medicine Geriatric Medicine
DX: R31.9 Hematuria, unspecified (principal); C95.90 Leukemia, unspecified not having achieved remission; R33.8 Other retention of urine; N32.89 Other specified disorders of bladder; R30.0 Dysuria; I10 Essential (primary) hypertension; E11.9 Type 2 diabetes mellitus without complications; M19.09 Primary osteoarthritis, other specified site; Z79.4 Long term (current) use of insulin; Z79.899 Other long term (current) drug therapy; Z79.84 Long term (current) use of oral hypoglycemic drugs; Z85.07 Personal history of malignant neoplasm of pancreas; T45.1X5A Adverse effect of antineoplastic and immunosuppressive drugs, initial encounter
CPT/HCPCS: 36415; 76775; 80048; 80053; 81001; 82962; 85025; 94640; 96365; 99291; G0378; J1815